=== PATIENT | female | born 2000 | race Caucasian/White ===

== ENCOUNTER 2022-02-02 13:28 | Emergency (ER) | payer BC ==
--- OUTSIDE RECORDS SUMMARY | 2022-02-02 13:40 | XMS REPORT | Continuity of Care Document ---
:2000 Author Organization Formerly [facility] t Address Critical access hospital[facility] [address] [place] [address] Care Team Providers Name Role Phone ALICE GARCIA Primary Care Physician Unavailable MAT SHAH Attending Clinician Unavailable ISRAEL BIRD Attending Clinician Unavailable VIDYA PATEL Attending Clinician Unavailable Vidya Rodriguez Attending Clinician Unknown, Attending Attending Clinician Unavailable Doctor Unassigned, [place] Attending Clinician Unavailable Judy WHAlice SANTOS Attending Clinician [phone] ALICE GARCIA Attending Clinician Unavailable Payers Payer Name Policy Type Policy Number Effective Date Expiration Date Fred de luna [facility] [id number] 2021 00:00:00 [place] [employer] [id number] 2021 00:00:00 Problems Condition Condition Condition Status Onset Resolution Last Treating Co mments Source Name Details Category Date Date Treatment Clinician Date Susceptibl Susceptibl Disease Active Overview : Univers e to e to 10-22 Formattin ity of varicella varicella 00:00: [place] (non-immun (non-immun 00 note Me dical e), e), might be Branch currently currently different from the original. Address pp Supervisio Supervisio Disease Active Overview : Univers n of n of 10-21 Formattin ity of high-risk high-risk 00:00: [place] 00 note Medi indio might be Branch different from the original. ROR requested today, see care everywher e for labs Multiparit Multiparit Disease Active U nivers y y 10-21 ity of 00:00: [place] 00 [facility] History of History of Disease Active Overview : Univers 10-21 Formattin ity of section section 00:00: g of this 00 note Medical might be Branch different from the original. x1 desires TOLAC Leakage of Leakage of Disease Active U nivers amniotic amniotic 10-21 ity of fluid fluid 00:00: [place] 00 Medical [place] Allergies, Adverse Reactions, Alerts Allergy Allergy Status Severity Reaction(s) Onset Inactive Treating Comm ents Source Name Type Date Date Clinician NO KNOWN Drug Active Univers ALLERGIE Class ity of S [facility] [place] Social History Social Habit Start Date Stop Date Quantity Comments Source ASSERTION 2020-01-31 [facility] 00:00:[address] [facility] [place] Exposure to 2021-12-12 2021-12-22 Not sure [facility] SARS-CoV-2 00:00:00 09:07:00 [facility] (event) [place] Tobacco use and 2021-12-22 2021-12-22 Smokeless tobacco Un iversity of exposure 00:00:00 00:00:00 non-user [facility] [place] Alcohol intake 2021-12-22 2021-12-22 Ex-drinker [facility] 00:00:00 00:00:00 (finding) [facility] [place] Sex Assigned At [birth year] Universit y of 00:00:00 00:00:[address] [facility] [place] [place] Smoking Status Start Date Stop Date Source Never smoked tobacco [facility] Medications Ordered Filled Start Stop Current Ordering Indication Dosage Frequency Signature Comments Components Source Medication Medication Date Date Medication? Clinician (SIG) Name Name cyclobenzap 2021-02 Yes [id number] 10mg Take 1 Univers rine 10 mg 1-01 tablet by ity of tablet 00:00: mouth at [place] 00 bedtime as Medical needed for Branch Muscle Spasms. naproxen 2021-02 Yes [id number] 500mg Take 1 U nivers 500 mg 1-01 tablet by ity of tablet 00:00: mouth [place] 00 every 8 Medical (eight) Branch hours as needed for Pain (scale 4-6). Yes Unive rs vit,indio 10-21 Vitamin ity of 74/iron/fol 18:22: [place] ic 35 Medical ( Branch VITAMIN 1+1 ORAL) proMETHazin Yes promethazi Univers e 12.5 mg 8-31 ne 12.5 mg ity of tablet 18:22: tablet 35 take 1 tab Medical PO every Branch 4-6hr prn nausea doxylamine- Yes Diclegis Un cecily pyridoxine, 8-31 10 mg-10 ity of vit B6, 18:22: mg [place] (DICLEGIS) 35 tablet,del Med ical 10-10 mg ayed Branch per tablet release Take 1 tab PO in morning, 1 tab mid-aftern oon, and 2 tabs in evenings calcium Yes Mylanta Univers carb-mag 8-31 Coat-Cool ity of hydrox-izabella 18:22: [facility] (MYLANTA 35 Medical COAT-COOL) Branch 1,200 mg-270 mg -80 mg/10 mL Susp Yes Unive rs vit,indio 8-31 Vitamin ity of 74/iron/fol 18:22: [facility] 35 Medical ( Branch VITAMIN 1+1 ORAL) proMETHazin Yes promethazi Univers e 12.5 mg 8-31 ne 12.5 mg ity of tablet 18:22: tablet 35 take 1 tab Medical PO every Branch 4-6hr prn nausea doxylamine- Yes Diclegis Un cecily pyridoxine, 8-31 10 mg-10 ity of vit B6, 18:22: mg [place] (DICLEGIS) 35 tablet,del Med ical 10-10 mg ayed Branch per tablet release Take 1 tab PO in morning, 1 tab mid-aftern oon, and 2 tabs in evenings calcium Yes Mylanta Univers carb-mag 8-31 Coat-Cool ity of hydrox-izabella 18:22: [place] (MYLANTA 35 Medical COAT-COOL) Branch 1,200 mg-270 mg -80 mg/10 mL Susp Yes Unive rs vit,indio 8-31 Vitamin ity of 74/iron/fol 13:22: [place] ic 35 Medical ( Branch VITAMIN 1+1 ORAL) proMETHazin Yes promethazi Univers e 12.5 mg 8-31 ne 12.5 mg ity of tablet 13:22: tablet [place] 35 take 1 tab Medical PO every Branch 4-6hr prn nausea doxylamine- Yes Diclegis Un cecily pyridoxine, 8-31 10 mg-10 ity of vit B6, 13:22: mg [place] (DICLEGIS) 35 tablet,del Med ical 10-10 mg ayed Branch per tablet release Take 1 tab PO in morning, 1 tab mid-aftern oon, and 2 tabs in evenings calcium Yes [facility] Univers carb-mag 8-31 Coat-Cool ity of hydrox-izabella 13:22: [facility] (MYLANTA 35 Medical COAT-COOL) Branch 1,200 mg-270 mg -80 mg/10 mL Susp Yes Unive rs vit,indio 8 Vitamin ity of 74/iron/fol 13:22: [facility] 35 Medical ( Branch VITAMIN 1+1 ORAL) proMETHazin Yes promethazi Univers e 12.5 mg 8- ne 12.5 mg ity of tablet 13:22: tablet [place] [id number] take 1 tab Medical PO every Branch 4-6hr prn nausea doxylamine- Yes Diclegis Un cecily pyridoxine, 8-31 10 mg-10 ity of vit B6, 13:22: mg [place] (DICLEGIS) 35 tablet,del Med ical 10-10 mg ayed Branch per tablet release Take 1 tab PO in morning, 1 tab mid-aftern oon, and 2 tabs in evenings calcium Yes [facility] carb-mag 8-31 Coat-Cool ity of hydrox-izabella 13:22: [facility] (MYLANTA 35 Medical COAT-COOL) Branch 1,200 mg-270 mg -80 mg/10 mL Susp Immunizations Ordered Filled Immunization Date Status Comments Sourc e Immunization Name Name TD 2020-08-12 Completed [facility] 00:00:[address] [facility] [place] TD 2020-08-12 Completed University of 00:00:[address] [facility] [place] TDAP 2020-08-12 Completed [facility] 00:00:[address] [facility] TDAP 2020-08-12 Completed [facility] 00:00:[address] [facility] [place] Vital Signs Vital Name Observation Time Observation Value Comments Source Respiratory rate 2021-12-22 14:17:00 16 /min [facility] Body height 2021-12-22 14:17:00 157.5 cm Universi ty [facility] Body weight 2021-12-22 14:17:00 51.483 kg [facility] BMI 2021-12-22 14:17:00 20.76 kg/m2 [facility] Oxygen saturation in 2021-12-22 14:17:00 98 /min [facility] Arterial blood by [facility] Pulse oximetry Branch Systolic blood 2021-12-22 14:17:00 110 mm[Hg] Univer sity of pressure [facility] [place] Diastolic blood 2021-12-22 14:17:00 70 mm[Hg] Unive rsity of [facility] Heart rate 2021-12-22 14:17:00 67 /min [facility] Body temperature 2021-12-22 14:17:00 37.06 Iva [facility] Systolic blood 2020-10-21 18:22:00 114 mm[Hg] Univer sity of [facility] Diastolic blood 2020-10-21 18:22:00 73 mm[Hg] Unive rsity of [facility] Heart rate 2020-10-21 18:22:00 56 /min [facility] Body temperature 2020-10-21 18:22:00 37.33 Iva [facility] Respiratory rate 2020-10-21 18:22:00 16 /min [facility] Body weight 2020-10-21 18:22:00 64.581 kg [facility] Procedures Procedure Date / Time Performed Performing Clinician [facility] e ASSIGNMENT OF BENEFITS 2021-12-22 14:10:54 Doctor Unassigned, No [facility] Name [facility] CBC WITH DIFF 2020-10-21 19:22:00 Alice Garcia [facility] HEPATITIS B SURFACE 2020-10-21 19:22:00 Alice [facility]2 AG-AB WITH 2020-10-21 19:22:00 Alice Garcia Univ ersity of [facility] HB ABO GROUPING 2020-10-21 19:15:00 Alice Garcia Univers ity [facility] POCT TEST 2020-10-21 18:15:00 Alice Garcia Uni versity [facility] POCT URINALYSIS W/O 2020-10-21 18:15:00 [facility] Start End Encounter Admission Attending Care Care Encounter Source Date/Time Date/Time Type Type Clinicians Facility Department ID 2022-01-04 2022-01-04 Outpatient R ALYSSA [facility] [id number] Univers 14:45:00 14:45:00 MAT jesse [facility] 2021-12-30 2021-12-30 Outpatient R MARGE [facility] [id number] Univers 15:00:00 15:00:00 ISRAEL valero [facility] 2021-12-22 2021-12-22 Outpatient Hue PATEL [facility] [id number] Univers 09:20:00 09:29:53 VIDYA valero o f [facility] [place] 2021-12-22 2021-12-22 Urgent Vidya Patel [facility] [id number] Univers 09:20:00 09:29:53 Care Unknown, Attending HEALTH [id number] ity of [place] [id number] Siddhartha as DENISA?BLEA [id number] [address] MEDICAL OFFICE BUILDING 2021-12-22 2021-12-22 Orders Doctor SANTIAGO [id number] Univers 00:00:00 00:00:00 Only Unassigned, MARICRUZ [id number] ity of [place] [facility] [id number] Siddhartha as [id number] [address] 2020-10-21 2020-10-21 [facility] [id number] Univers 13:02:53 14:21:29 Alice Beal [employer] [id number] ity of Visit [facility] [id number] Siddhartha as MATERNAL [id number] Med ical & CHILD [address] [place] [address] 2020-10-21 2020-10-21 Outpatient R JUDY, [facility] [id number] Univers 13:30:00 13:30:[address] [facility] [place] Results Test Description Test Time Test Comments Results Result Comments Source HIV 1/2 AG-AB WITH REFLEX 2020-10-22 07:26:56 Test Item Value Reference Range Interpretation Comme nts HIV Semi-quantitative (test code = Negative Negative 22617-1) NEGAR (test code = NEGAR) Non-reactive for HIV-1 antigen and HIV-1/HIV-2 antibodies. ?No laboratory evidence of HIV infection. ?Repeat in 2-4 weeks if acute HIV infection is suspected. [facility] WITH [id number] 07:26:56 Test Item Value Reference Range Interpretation Comments HIV Semi-quantitative (test code = Negative Negative 87485-3) NEG[facility] (test code = NEGAR) [facility] [id number] 07:22:26 Test Item Value Reference Range Interpretation Comments ABO & RH (test code A POSITIVE Performe d at [facility] = 20) Laboratory Serv [facility] Blood [facility]3 [facility] s [id number] Free: [phone] A No. [id number] IAT (test code = Negative Performed a t [facility] 1185) Laboratory Serv [facility] Blood [facility]3 [facility] s [id number] Free: [phone] A No. [id number] [facility] [id number] 07:22:26 Test Item Value Reference Range Interpretation Comments ABO & RH (test code = 20) A POSITIVE IAT (test code = 1185) Negative [facility] B SURFACE [id number] 06:19:30 Test Item Value Reference Range Interpretation Comments HBsAg Semi-Quantitative (test code = Negative Negative 5195-3) [facility] B SURFACE [id number] 06:19:30 Test Item Value Reference Range Interpretation Comments HBsAg Semi-Quantitative (test code = Negative Negative 5195-3) [facility] WITH [id number] 04:34:52 Test Item Value Reference Range Interpretation Comments WBC (test code = See_Comment [Automated 6690-2) message] The sy stem which generated this result transmitted reference range : 4.30 - 11.10 10*3/?L. The reference range was not used to interpret this result as normal/abnormal . RBC (test code = See_Comment [Automated 789-8) message] The sy stem which generated this result transmitted reference range : 3.93 - 5.25 10*6/?L. The reference range was not used to interpret this result as normal/abnormal . HGB (test code = 13.1 g/dL 11.6-15.0 718-7) HCT (test code = 39.5 % 35.7-45.2 4544-3) MCV (test code = 89.8 fL 80.6-95.5 787-2) MCH (test code = 29.8 pg 25.9-32.8 785-6) MCHC (test code = 33.2 g/dL 31.6-35.1 786-4) RDW-SD (test code = 43.2 fL 39.0-49.9 90120-1) RDW-CV (test code = 13.2 % 12.0-15.5 788-0) PLT (test code = See_Comment L [Automated 777-3) message] The sy stem which generated this result transmitted reference range : 166 - 358 10*3/ ?L. The reference r gopi was not used to interpret this result as normal/abnormal . MPV (test code = 13.0 fL 9.5-12.9 H 06684-6) NRBC/100 WBC (test See_Comment [Automat ed code = [id number]) message] The system which generated this result transmitted reference range : 0.0 - 10.0 /100 WBCs. The refer ence range was not u sed to interpret th is result as normal/abnormal . NRBC x10^3 (test code <0.01 See_Comment [Auto mated = [id number]) message] The s ystem which generated this result transmitted reference range : 10*3/?L. The reference range was not used to interpret this result as normal/abnormal . GRAN MAT (NEUT) % 63.9 % (test code = 770-8) IMM GRAN % (test code 0.20 % = 7765537586) LYMPH % (test code = 27.6 % 736-9) MONO % (test code = 7.2 % 5905-5) EOS % (test code = 0.7 % 713-8) BASO % (test code = 0.4 % 706-2) GRAN MAT x10^3(ANC) 5.26 10*3/uL 1.88-7.09 (test code = 3681065066) IMM GRAN x10^3 (test <0.03 0.00-0.06 code = 3085381863) LYMPH x10^3 (test code 2.27 10*3/uL 1.32-3.29 = 731-0) MONO x10^3 (test code 0.59 10*3/uL 0.33-0.92 = 742-7) EOS x10^3 (test code = 0.06 10*3/uL 0.03-0.39 711-2) BASO x10^3 (test code 0.03 10*3/uL 0.01-0.07 = 704-7) Lab Interpretation Abnormal (test code = 35538-6) [facility] WITH [id number] 04:34:52 Test Item Value Reference Range Interpretation Comments WBC (test code = See_Comment [Automated 3229-2) message] The sy stem which generated this result transmitted reference range : 4.30 - 11.10 10*3/?L. The reference range was not used to interpret this result as normal/abnormal . RBC (test code = See_Comment [Automated 741-8) message] The sy stem which generated this result transmitted reference range : 3.93 - 5.25 10*6/?L. The reference range was not used to interpret this result as normal/abnormal . HGB (test code = 13.1 g/dL 11.6-15.0 718-7) HCT (test code = 39.5 % 35.7-45.2 4544-3) MCV (test code = 89.8 fL 80.6-95.5 787-2) MCH (test code = 29.8 pg 25.9-32.8 785-6) MCHC (test code = 33.2 g/dL 31.6-35.1 786-4) RDW-SD (test code = 43.2 fL 39.0-49.9 53093-4) RDW-CV (test code = 13.2 % 12.0-15.5 788-0) PLT (test code = See_Comment L [Automated 777-3) message] The sy stem which generated this result transmitted reference range : 166 - 358 10*3/ ?L. The reference r gopi was not used to interpret this result as normal/abnormal . MPV (test code = 13.0 fL 9.5-12.9 H 30160-5) NRBC/100 WBC (test See_Comment [Automat ed code = 5424660622) message] The system which generated this result transmitted reference range : 0.0 - 10.0 /100 WBCs. The refer ence range was not u sed to interpret th is result as normal/abnormal . NRBC x10^3 (test code <0.01 See_Comment [Auto mated = 2543036714) message] The s ystem which generated this result transmitted reference range : 10*3/?L. The reference range was not used to interpret this result as normal/abnormal . GRAN MAT (NEUT) % 63.9 % (test code = 770-8) IMM GRAN % (test code 0.20 % = 9798049866) LYMPH % (test code = 27.6 % 736-9) MONO % (test code = 7.2 % 5905-5) EOS % (test code = 0.7 % 713-8) BASO % (test code = 0.4 % 706-2) GRAN MAT x10^3(ANC) 5.26 10*3/uL 1.88-7.09 (test code = 3236124042) IMM GRAN x10^3 (test <0.03 0.00-0.06 code = 1908707094) LYMPH x10^3 (test code 2.27 10*3/uL 1.32-3.29 = 731-0) MONO x10^3 (test code 0.59 10*3/uL 0.33-0.92 = 742-7) EOS x10^3 (test code = 0.06 10*3/uL 0.03-0.39 711-2) BASO x10^3 (test code 0.03 10*3/uL 0.01-0.07 = 704-7) Lab Interpretation Abnormal (test code = 11212-5) [facility] [id number] 18:15:00 Test Item Value Reference Range Interpretation Comments POCT PREG (test code = 1605) Positive On board controls acceptable with C Yes Line (test code = 3574) POCT PREG LOT # (test code = 3575) POCT PREG TEST DATE (test code = 357) [facility] URINALYSIS W/O SPECIFIC [id number] 18:15:00 Test Item Value Reference Range Interpretation Comments POCT PH U (test code = 3254) 7 mg/dl 5-8 POCT U LEUK EST (test code = 2+ Negative - Negative 3263) POCT U NIT (test code = 3262) Neg Negative - Negative POCT U PROT (test code = 3259) Trace Negative - Negative POCT U GLU (test code = 3256) Neg Negative - Negative POCT U KETONE (test code = 3258) NOne Negative - Negative POCT U BLD (test code = 3257) Trace Negative - Negative [facility] [id number] 18:15:00 Test Item Value Reference Range Interpretation Comments POCT PREG (test code = 1605) Positive On board controls acceptable with C Yes Line (test code = 3574) POCT PREG LOT # (test code = 3575) POCT PREG TEST DATE (test code = 357) [facility] URINALYSIS W/O SPECIFIC [id number] 18:15:00 Test Item Value Reference Range Interpretation Comments POCT PH U (test code = 3254) 7 mg/dl 5-8 POCT U LEUK EST (test code = 2+ Negative - Negative 3263) POCT U NIT (test code = 3262) Neg Negative - Negative POCT U PROT (test code = 3259) Trace Negative - Negative POCT U GLU (test code = 3256) Neg Negative - Negative POCT U KETONE (test code = 3258) NOne Negative - Negative POCT U BLD (test code = 3257) Trace Negative - Negative [facility]
--- NOTE | 2022-02-02 14:03 | ER ---
Nurse's Notes [facility] Name: Anna Marie Lopez Age: 21 yrs Sex: Female : 2000 Arrival Date: 02/02/2022 Time: 13:33 Bed 15 Private MD: Diagnosis: Suicidal ideations Presentation: 02/02 13:45 Chief complaint: EMS states: Neighbor called 911 because patient was found in his ss vehicle naked. Possible ingestion of cyclobenzaprine as a bottle of her husbands prescription was found, prescribed this month, 90 day supply and half of the bottle missing. Mother states that patient was distraught this morning, stating that she was "over it." reports that he last saw the patient normal at 0930 this morning. Pt is confused, oriented to person only. Coronavirus screen: Client denies travel out of the [place] in the last 14 days. Ebola Screen: Patient denies exposure to infectious person. Patient denies travel to an Ebola-affected area in the 21 days before illness onset. Initial Sepsis Screen: Does the patient meet any 2 criteria? No. Patient's initial sepsis screen is negative. Does the patient have a suspected source of infection? No. Patient's initial sepsis screen is negative. Risk Assessment: Do you want to hurt yourself or someone else? Patient reports desire/thoughts of hurting themselves or someone else. Provider notified. Onset of symptoms was February 02, 2022. 13:45 Method Of Arrival: EMS: [facility] 13:45 Acuity: FREDA 2 ss BIT SHAVER: 02/03 08:57 LMP N/A - Irregular menses ap3 Historical: - Allergies: 02/02 13:57 No Known Allergies; ss - Home Meds: 13:57 None [Active]; ss - PMHx: 13:57 Depressive disorder; ss - PSHx: 13:57 None; ss - Immunization history:: Adult Immunizations unknown. - Social history:: Smoking status: Patient denies any tobacco usage or history of. Screenin:00 [facility] ED Fall Risk Assessment (Adult) History of falling in the last 3 months, eh3 including since admission No falls in past 3 months (0 pts) Confusion or Disorientation Yes (5 pts) Intoxicated or Sedated Yes (3 pts) Impaired Gait Yes (1 pt) Mobility Assist Device Used No (0 pt) Altered Elimination No (0 pt) Score/Fall Risk Level 3 or more points = High Risk Oriented to surroundings, Maintained a safe environment, Educated pt \\T\\ family on fall prevention, incl call for assistance when getting out of bed, Assessed \\T\\ reinforced patient's understanding of fall precautions, Provided non-skid footwear, Hourly rounding (assess needs \\T\\ fall precautionary measures) done, Used ambulatory aids as needed (educated on \\T\\ assisted with), Used gait belt as appropriate Implemented a Fall Risk Plan of Care, Apply high fall risk patient identification: yellow non skid footwear/ fall signage, Offered frequent toileting (1:1 observation), Remained with patient while ambulating, Utilized family, sitter, or virtual flat polisher as indicated. Humpty Dumpty Scale Fall Assessment Tool (age< 18yrs) Age 13 years and above (1 pt) Gender Female (1 pt) Diagnosis Psych/ behavioral disorders ( 2 pts) Cognitive Impairments Not aware of limitations (3 pts) Environmental Factors Patient placed in bed (2 pts) Response to Surgery/Sedation/Anesthesia More than 48 hours/ None (1 pt) Medication Usage One of the meds listed above (2 pts) Fall Risk Score/ Level High Fall Risk: >/= 12 points Oriented to surroundings, Maintained a safe environment: age specific bed with railing, Bed in low position \\T\\ wheels locked, Assessed need for side rail use, Locks on all chairs, commodes, stretchers \\T\\ wheelchairs, Rm and paths clutter \\T\\ obstacle free, Proper lighting, Educated pt \\T\\ family on fall prevention, incl. call for assistance when getting out of bed, Assesseed \\T\\ reinforced patient's understanding of fall precautions, Provided non -skid footwear, Hourly rounding (assess needs \\T\\ fall precautionary measures) done, Use of ambulatory aids as needed (educated on \\T\\ assisted with), Used gait belt as appropriate, Implemented a fall risk plan of care, Applied high fall risk patient identification: yellow non-skid footwear/ fall signage, Remained with the patient when ambulating, Used family, sitter or virtual flat polisher as indicated, Patient moved closer to Nurse's station. Abuse screen: Denies threats or abuse. Denies injuries from another. Nutritional screening: No deficits noted. Tuberculosis screening: No symptoms or risk factors identified. Fall Risk IV access (20 points). Ambulatory Aid- None/Bed Rest/Nurse Assist (0 pts). Gait- Impaired (20 pts.). Mental Status- Overestimates/Forgets Limitations (15 pts.). Total Prince Fall Scale indicates High Risk Score (45 or more points). Fall prevention measures have been instituted. Side Rails Up X 2 Placed Close to Nursing Station 1:1 Attendant Assigned Frequent Obs/Assessments Occuring Family Present and informed to notify staff if the need to leave the bedside As available patient and family educated on Fall Prevention Program and Strategies. Assessment: 14:00 General: Appears in no apparent distress. comfortable, Behavior is cooperative, eh3 anxious, drowsy. Pain: Denies pain. Neuro: Level of Consciousness is awake, obeys commands, confused, Oriented to person, place. Cardiovascular: Capillary refill < 3 seconds Patient's skin is warm and dry. Respiratory: Airway is patent Respiratory effort is even, unlabored, Respiratory pattern is regular, symmetrical. GI: No signs and/or symptoms were reported involving the gastrointestinal system. Abdomen is flat, non-distended. : No signs and/or symptoms were reported regarding the genitourinary system. EENT: No signs and/or symptoms were reported regarding the EENT system. Derm: No signs and/or symptoms reported regarding the dermatologic system. Musculoskeletal: No signs and/or symptoms reported regarding the musculoskeletal system. Circulation, motion, and sensation intact. Range of motion:. 14:06 Reassessment: Poison control contacted: CASE #[id number]. Recommendation is to keep ss patient until back at baseline and/or minimum of 8 hour observation. Anticipate anticholinergic effects, dry mouth, tachycardiac, hypo or hypertension, delirium, hallucinations and/or seizure. Obtain tox labs, EKG, Mg and give IV fluids. MITA Cormier notified of recommendations. 15:00 Reassessment: Patient and/or family updated on plan of care and expected duration. Pain eh3 level reassessed. Patient is alert, oriented x 3, equal unlabored respirations, skin warm/dry/pink. 16:00 Reassessment: Patient and/or family updated on plan of care and expected duration. Pain eh3 level reassessed. Patient is alert, oriented x 3, equal unlabored respirations, skin warm/dry/pink. 17:00 Reassessment: Patient and/or family updated on plan of care and expected duration. Pain eh3 level reassessed. Patient is alert, oriented x 3, equal unlabored respirations, skin warm/dry/pink. 18:00 Reassessment: Patient and/or family updated on plan of care and expected duration. Pain eh3 level reassessed. Patient is alert, oriented x 3, equal unlabored respirations, skin warm/dry/pink. 19:00 Reassessment: Patient and/or family updated on plan of care and expected duration. Pain eh3 level reassessed. Patient is alert, oriented x 3, equal unlabored respirations, skin warm/dry/pink. 20:45 General: Appears in no apparent distress. comfortable, well groomed, well developed, pf1 Behavior is calm, cooperative, appropriate for age, quiet. 20:45 Pain: Denies pain. Neuro: No deficits noted. Level of Consciousness is awake, alert, pf1 obeys commands, Oriented to person, place, time, situation. Cardiovascular: No deficits noted. Capillary refill < 3 seconds Patient's skin is warm and dry. Respiratory: No deficits noted. Airway is patent Respiratory effort is even, unlabored, Respiratory pattern is regular, symmetrical, Breath sounds are clear bilaterally. GI: No deficits noted. No signs and/or symptoms were reported involving the gastrointestinal system. Abdomen is flat, non-distended, Bowel sounds present X 4 quads. : No deficits noted. No signs and/or symptoms were reported regarding the genitourinary system. EENT: No deficits noted. No signs and/or symptoms were reported regarding the EENT system. Derm: No deficits noted. No signs and/or symptoms reported regarding the dermatologic system. 22:00 Reassessment: Patient and/or family updated on plan of care and expected duration. Pain pf1 level reassessed. Patient is alert, oriented x 3, equal unlabored respirations, skin warm/dry/pink. 23:00 Reassessment: Patient appears in no apparent distress at this time. Patient and/or pf1 family updated on plan of care and expected duration. Pain level reassessed. Patient is alert, oriented x 3, equal unlabored respirations, skin warm/dry/pink. Patient sleeping at this time. Mother in room with patient. 02/03 00:00 Reassessment: Patient appears in no apparent distress at this time. No changes from pf1 previously documented assessment. 01:00 Reassessment: Patient appears in no apparent distress at this time. No changes from pf1 previously documented assessment. Patient and/or family updated on plan of care and expected duration. Pain level reassessed. 02:00 Reassessment: Patient appears in no apparent distress at this time. No changes from pf1 previously documented assessment. Patient and/or family updated on plan of care and expected duration. Pain level reassessed. 03:00 Reassessment: Patient appears in no apparent distress at this time. No changes from pf1 previously documented assessment. Patient and/or family updated on plan of care and expected duration. Pain level reassessed. Patient sleeping at this time.. 04:00 Reassessment: Patient appears in no apparent distress at this time. No changes from pf1 previously documented assessment. Patient and/or family updated on plan of care and expected duration. Pain level reassessed. Patient sleeping at this time. 05:00 Reassessment: Patient appears in no apparent distress at this time. No changes from pf1 previously documented assessment. Patient and/or family updated on plan of care and expected duration. Pain level reassessed. Patient sleeping at this time. 06:00 Reassessment: Patient appears in no apparent distress at this time. No changes from pf1 previously documented assessment. Patient and/or family updated on plan of care and expected duration. Pain level reassessed. Patient sleeping at this time. Mother in room with patient. 07:15 Reassessment: Patient and/or family updated on plan of care and expected duration. Pain ap3 level reassessed. Patient is alert, oriented x 3, equal unlabored respirations, skin warm/dry/pink. patient denies that she overdosed. patient states she took "one Flexeril". patient is not cooperative for [place] scale reassessment at this time. 08:30 Reassessment: Patient and/or family updated on plan of care and expected duration. Pain ap3 level reassessed. Patient is alert, oriented x 3, equal unlabored respirations, skin warm/dry/pink. 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 report given to transport crew. ap3 Psych: 02/02 20:45 [place] Suicide Severity Screening: Patient denies any suicidal ideations or attempt. pf1 20:45 Subjective: Delusions are denied, Hallucinations are denied. Objective: Patient is pf1 cooperative, using poor eye contact, Speech is normal, Affect is flat. Interventions: Removed personal items and placed in bag. Patient placed in hospital gown. Searched person for dangerous items. Urine collected and sent for urine drug test. Belonging list filled out. Safety Checks: Personal items have been removed. Door is open. Visitors are present. 02/03 08:57 Commitment: Patient will be an involuntary commitment. ap3 08:57 unknown. patient currently denies. ap3 Overdose: 02/02 20:45 [place] Suicide Severity Screening: Patient denies any suicidal attempt or ideations pf1 at this time. Patient stated she took Flexeril x 1 tablet this morning for her headache. 20:45 Patient took Patient stated took Flexeril x 1 tablet this AM. pf1 02/03 08:55 [place] Suicide Severity Screening: "In the past month, have you wished you were ap3 or wished you could go to sleep and not wake up?" Patient responds "yes." Based off client's responses, additional C-SSRS screening questions required. "In the past month, have you actually had any thoughts of killing yourself?" Patient responds "no." patient denies she attempted suicide. patient states that she only took "one Flexeril" "In your lifetime, have you ever done anything, started to do anything, or prepared to do anything to end your life?". 08:56 [place] Suicide Severity Screening: "In the past month, have you actually had any ap3 thoughts of killing yourself?" Patient responds "yes." Based off client's responses, additional C-SSRS screening questions required. Vital Signs: 02/02 13:45 BP 119 / 81; Pulse 98; Resp 15; Temp 98.0(TE); Pulse Ox 100% on R/A; Pain 0/10; ss 14:00 BP 121 / 77; Pulse 99; Resp 16; Pulse Ox 100% on R/A; eh3 15:00 BP 142 / 91; Pulse 113; Resp 18; Pulse Ox 99% on R/A; eh3 16:00 BP 123 / 104; Pulse 93; Resp 18; Pulse Ox 100% on R/A; eh3 17:00 BP 114 / 91; Pulse 86; Resp 18; Pulse Ox 100% on R/A; eh3 18:00 BP 128 / 70; Pulse 79; Resp 18; Pulse Ox 99% on R/A; eh3 20:45 BP 110 / 74; Pulse 95; Resp 18; Temp 97.8; Pulse Ox 100% ; Pain 0/10; pf1 02/03 00:00 BP 112 / 68; Pulse 90; Resp 16; Pulse Ox 98% ; Pain 0/10; pf1 03:00 BP 106 / 74; Pulse 89; Resp 18; Temp 97.9; Pulse Ox 100% ; Pain 0/10; pf1 06:52 BP 99 / 61; Pulse 83; Resp 18; Temp 97.9(TE); Pulse Ox 100% on R/A; pf1 ED Course: 02/02 13:33 Patient arrived in ED. ss 13:36 Genia Santo FNP-C is PHCP. kb 13:36 David Maradiaga DO is Attending Physician. kb 13:40 Ariana Hilario RN is Primary Nurse. eh3 13:57 Triage completed. ss 13:57 Arm band placed on right wrist. ss 14:00 Patient has correct armband on for positive identification. Bed in low position. Call eh3 light in reach. Side rails up X2. Adult w/ patient. Valuables inventory done. Seizure precautions initiated. Pulse ox on. NIBP on. Sitter at bedside. Door closed. Noise minimized. Warm blanket given. Patient is placed in psych hold. 14:00 Inserted saline lock: 20 gauge in right antecubital area, using aseptic technique. eh3 Blood collected. 14:03 CT Head Brain wo Cont In Process Unspecified. EDMS 18:28 Urine collected: clean catch specimen, clear. tm3 20:45 Safety Checks: Personal items have been removed. The door is open or patient has been pf1 placed in a hallway bed/chair. A family member and/or friend is present and encouraged to stay. at Sitter present at this time. 02/03 07:14 Attending Physician role handed off by David Maradiaga DO madina 07:14 Morris Lopez MD is Attending Physician. madina 08:35 Primary Nurse role handed off by Ariana Hilario RN bd 08:54 Patient transferred, IV remains in place. Pressure dressing applied. rs5 08:56 No provider procedures requiring assistance completed. ap3 Administered Medications: 02/02 14:25 Drug: NS 0.9% 1000 ml Route: IV; Rate: 1000 ml; Site: right antecubital; eh3 15:36 Follow up: IV Status: Completed infusion; IV Intake: 1000ml eh3 15:35 Drug: Potassium Chloride 40 mEq Route: PO; eh3 18:16 Follow up: Response: No adverse reaction eh3 Medication: 14:06 VIS not applicable for this client. ss Intake: 15:36 IV: 1000ml; Total: 1000ml. eh3 Outcome: 14:02 ER care complete, transfer ordered by . ms3 02/03 08:57 Transferred by ground EMS Note: [facility] ap3 Condition: good Instructed on the need for transfer. 08:59 Patient left the ED. ap3 Signatures: Dispatcher [employer] EDMS Genia Santo, TRUSS BUILDER-C TRUSS BUILDER-Ckb Awa Mcclure bd Elle, Dangelo tm3 Morris Lopez MD MD cha Smirch, Shelby, RN RN Brook Curiel RN RN ap3 Dvaid Maradiaga, DO ms3 Ariana Hilario RN RN eh3 Rosy christopher RN RN pf1 Marquis Hernández rs5 Corrections: (The following items were deleted from the chart) 02/02 15:17 13:45 Risk Assessment: Do you want to hurt yourself or someone else? Patient reports no ss desire to harm self or others. ss 02/03 08:55 08:52 Reassessment: Patient and/or family updated on plan of care and expected ap3 duration. Pain level reassessed. Patient is alert, oriented x 3, equal unlabored respirations, skin warm/dry/pink. ap3
[2022-02-02 14:06] LABS: Absolute Lymphocytes (CBC) 0.9 K/uL (0.7-4.9); Hematocrit 43.8 % (36.0-45.0); Lymphocytes % 35.2 % (15.3-44.8); MCV 90.1 fL (80-100); RBC Red Blood Cell Count 4.87 M/uL (3.86-4.86)
[2022-02-02 14:10] LABS: Protime INR 1.16
--- NOTE | 2022-02-02 14:10 | RAD REPORT ---
EXAM DESCRIPTION: CT - Head Brain Wo Cont - 02/02/2022 2:02 pm CLINICAL HISTORY: ams Headache, drowsiness COMPARISON: No comparisons TECHNIQUE: All CT scans are performed using dose optimization technique as appropriate and may inclu de automated exposure control or mA/KV adjustment according to patient size. FINDINGS: No intracranial hemorrhage, hydrocephalus or extra-axial fluid collection.No areas of brai n edema or evidence of midline shift. The paranasal sinuses and mastoids are clear. The calvarium is intact. IMPRESSION: No acute intracranial abnormality.
[2022-02-02 14:14] LABS: SARS-CoV-2 Antigen Rapid Res Negative (Negative)
[2022-02-02] MEDS ORDERED: NA CHLORIDE 0.9% 1,000 ML ONE (14:23)
[2022-02-02 14:29] LABS: ALT/SGPT 22 U/L (13-56); AST/SGOT 20 U/L (15-37); Albumin 4.3 g/dL (3.4-5.0); Alkaline Phosphatase 83 U/L (45-117); BUN Blood Urea Nitrogen 6 mg/dL (7-18); Bicarbonate 28 mmol/L (21-32); Bilirubin Total 0.4 mg/dL (0.2-1.0); Glomerular Filtration Rate 128 ml/min (=/>90); Glucose Level 106 mg/dL (74-106); Magnesium 2.3 mg/dL (1.6-2.4); Potassium 3.1 mmol/L (3.5-5.1); Protein, Total 8.1 g/dL (6.4-8.2); Sodium Level 141 mmol/L (136-145)
[2022-02-02 14:30] LABS: Bilirubin Direct < 0.1 mg/dL (0-0.2)
--- NOTE | 2022-02-02 14:33 | EKG ---
Test Date: 2022-02-02 Test Time: 14:04:24 Circuit Recorder: DAVI MEASUREMENT RESULTS: Intervals: Rate: 97 W[place]: 164 QRSD: 76 QT: 338 QTc: 429 [place]: P: 57 WY: 164 QRS: 78 T: 64 INTERPRETIVE STATEMENTS: Normal sinus rhythm Normal ECG No previous ECG available for comparison Electronically Signed On 02-02-22 14:32:45 NEW CAR MAKE READY WORKER by Hima Andrea
[2022-02-02] MEDS ORDERED: POTASSIUM CL SA 10 MEQ TAB PO ONE (15:39)
[2022-02-02 18:28] LABS: Urine Blood Negative (Negative); Urine Glucose Negative (Negative); Urine Protein Negative (Negative)
[2022-02-02 18:54] LABS: Barbiturates NEGATIVE (NEGATIVE); Benzodiazepines NEGATIVE (NEGATIVE); Cocaine NEGATIVE (NEGATIVE); METHAMPHETAM NEGATIVE (NEGATIVE); Methadone NEGATIVE (NEGATIVE); Opiates NEGATIVE (NEGATIVE); Phencyclidine NEGATIVE (NEGATIVE); THC Cannibis POSITIVE (NEGATIVE)
--- NOTE | 2022-02-03 09:00 | EDPHYS ---
Physician Documentation [facility] Name: Anna Marie Lopez Age: 21 yrs Sex: Female : 2000 Arrival Date: 02/02/2022 Time: 13:33 Bed 15 Private MD: ED Physician Morris Lopez HPI: 02/02 20:30 This 21 yrs old Female presents to ER via EMS with complaints of Possible Overdose. kb 20:30 The patient presents to the emergency department with a possible overdose, was found kb with a bottle. Context: Method: the patient has a confirmed or suspected ingestion, Time: the patient's OD/poisoning occurred at an unknown time, Extent: the OD/poisoning occurred at at home, and was witnessed no one, Psychiatric history: none, Previous OD/poisoning history: none. Associated signs and symptoms: The patient has no apparent associated signs or symptoms. Severity of symptoms: At their worst the symptoms were moderate in the emergency department the symptoms are unchanged. The patient has not experienced similar symptoms in the past. The patient has not recently seen a physician. states he last saw pt at 0940 and she was acting normally. Mother states pt has brought up suicide a few times in the past few weeks and again yesterday due to marital issues and general life stress. Neighbors called because pt was outside, not acting normally. EMS found open bottle of flexeril with half of the contents gone and some pills in the sink. Unknown of how many pt ingested. Pt reports she didn't count the pills when she took them. Pt is oriented to self, able to recall events up to dropping children off at school but doesn't remember what time she took the pills. . HAND SURGEON: 02/03 08:57 LMP N/A - Irregular menses ap3 Historical: - Allergies: 02/02 13:57 No Known Allergies; ss - Home Meds: 13:57 None [Active]; ss - PMHx: 13:57 Depressive disorder; ss - PSHx: 13:57 None; ss - Immunization history:: Adult Immunizations unknown. - Social history:: Smoking status: Patient denies any tobacco usage or history of. ROS: 20:29 Constitutional: Negative for fever, chills, and weight loss. kb 20:29 Neuro: Positive for altered mental status. 20:29 Psych: Positive for suicide gesture, suicidal ideation. 20:29 All other systems are negative. Exam: 14:42 Constitutional: This is a well developed, well nourished patient who is awake, alert, kb and in no acute distress. Head/Face: Normocephalic, atraumatic. ENT: Moist Mucous membranes Cardiovascular: Regular rate and rhythm with a normal S1 and S2. No gallops, murmurs, or rubs. No pulse deficits. Respiratory: Respirations even and unlabored. No increased work of breathing. Talking in full sentences Abdomen/GI: Soft, non-tender. No distention Skin: Warm, dry with normal turgor. Normal color. MS/ Extremity: Pulses equal, no cyanosis. Neurovascular intact. Full, normal range of motion. 14:42 ECG was reviewed by the Attending Physician. 14:42 Neuro: Orientation: to person. Vital Signs: 13:45 BP 119 / 81; Pulse 98; Resp 15; Temp 98.0(TE); Pulse Ox 100% on R/A; Pain 0/10; ss 14:00 BP 121 / 77; Pulse 99; Resp 16; Pulse Ox 100% on R/A; eh3 15:00 BP 142 / 91; Pulse 113; Resp 18; Pulse Ox 99% on R/A; eh3 16:00 BP 123 / 104; Pulse 93; Resp 18; Pulse Ox 100% on R/A; eh3 17:00 BP 114 / 91; Pulse 86; Resp 18; Pulse Ox 100% on R/A; eh3 18:00 BP 128 / 70; Pulse 79; Resp 18; Pulse Ox 99% on R/A; eh3 20:45 BP 110 / 74; Pulse 95; Resp 18; Temp 97.8; Pulse Ox 100% ; Pain 0/10; pf1 1214 00:00 BP 112 / 68; Pulse 90; Resp 16; Pulse Ox 98% ; Pain 0/10; pf1 03:00 BP 106 / 74; Pulse 89; Resp 18; Temp 97.9; Pulse Ox 100% ; Pain 0/10; pf1 06:52 BP 99 / 61; Pulse 83; Resp 18; Temp 97.9(TE); Pulse Ox 100% on R/A; pf1 MDM: 02/02 13:36 Patient medically screened. kb 20:29 Data reviewed: vital signs, nurses notes. Data interpreted: Pulse oximetry: on room air kb is 99 %. Interpretation: normal. 20:42 Transition of care: After a detail discussion of the patient's case, care is kb transferred to Van Patterson MD. ED course: Pt easily awakened by voice. Pt oriented x4 once awake, states she is just very tired. . 02/02 13:46 Order name: Acetaminophen; Complete Time: 14:35 kb 02/02 13:46 Order name: Basic Metabolic Panel; Complete Time: 14:35 kb 02/02 13:46 Order name: CBC with Diff; Complete Time: 14:11 kb 02/02 13:46 Order name: ETOH Level; Complete Time: 14:24 kb 02/02 13:46 Order name: Hepatic Function; Complete Time: 14:35 kb 02/02 13:46 Order name: PT-INR; Complete Time: 14:11 kb 02/02 13:46 Order name: Ptt, Activated; Complete Time: 14:11 kb 02/02 13:46 Order name: Salicylate; Complete Time: 14:43 kb 02/02 13:46 Order name: Urine Drug Screen; Complete Time: 19:08 kb 02/02 13:46 Order name: SARS RAPID; Complete Time: 14:24 kb 02/02 14:17 Order name: Magnesium; Complete Time: 14:35 EDMS 02/02 18:28 Order name: Urine Dipstick-Ancillary; Complete Time: 18:48 EDMS 02/02 18:29 Order name: Urine --Ancillary (enter results); Complete Time: 19:08 bd 02/02 13:46 Order name: EKG; Complete Time: 13:47 kb 02/02 13:46 Order name: EKG - Nurse/Tech; Complete Time: 14:12 kb 02/02 13:46 Order name: IV Saline Lock; Complete Time: 14:12 kb 02/02 13:46 Order name: Labs collected and sent; Complete Time: 14:12 kb 02/02 13:46 Order name: Suicide Precautions; Complete Time: 14:12 kb 02/02 13:46 Order name: Suicide Screening ([place]); Complete Time: 14:12 kb 02/02 13:46 Order name: Urine Dipstick-Ancillary (obtain specimen); Complete Time: 18:27 kb 02/02 13:46 Order name: Urine Test (obtain specimen); Complete Time: 18:27 kb 02/02 13:46 Order name: CT Head Brain wo Cont; Complete Time: 14:11 kb 02/02 14:16 Order name: Diet Finger Food; Complete Time: 14:17 eh3 02/03 07:08 Order name: Diet Finger Food; Complete Time: 07:09 bd EC:42 Rate is 97 beats/min. Rhythm is regular. QRS Clarence is Normal. OK interval is normal at kb 164 msec. QRS interval is normal at 76 msec. QT interval is normal at 429 msec. Administered Medications: 14:25 Drug: NS 0.9% 1000 ml Route: IV; Rate: 1000 ml; Site: right antecubital; 3 15:36 Follow up: IV Status: Completed infusion; IV Intake: 1000ml [facility] 15:35 Drug: Potassium Chloride 40 mEq Route: PO; 3 18:16 Follow up: Response: No adverse reaction 3 Disposition: 15:51 Co-signature as Attending Physician, David Maradiaga DO I was immediately available onsite ms3 in the emergency department for consultation in the care of the patient. Disposition Summary: 02/02/22 14:02 Transfer Ordered Transfer Location: [facility] ms3 Reason: Higher level of care ms3 Condition: Stable ms3 Problem: new ms3 Symptoms: are unchanged ms3 Accepting Physician: (02/03/22 08:59) ap3 Diagnosis - Suicidal ideations ms3 Forms: - Medication Reconciliation Form ms3 - SBAR form ms3 Signatures: Dispatcher [employer] EDGenia Shook, BU[employer] WIRE INSERTER-C [employer] WIRE INSERTER-Tatiana Dudley RN RN ss Prokisch, Amanda, RN RN ap3 Sims, Marcus, DO DO ms3 Ariana Hilario RN RN 3 Corrections: (The following items were deleted from the chart) 14:17 14:04 MAGNESIUM+C.LAB.BRZ ordered. EDMS EDMS 19:18 17:40 Straight Cath ordered. kb eh3 02/03 08:59 02/02 14:02 Dr pittman ap3
[2022-02-03 09:13] VITALS: TEMP 97.9; O2SAT 100
[2022-02-03 09:15] VITALS: BP 99/61
== END 2022-02-03 08:59 ==
LOC: ER 13:28
DX: R45.851 Suicidal ideations (principal); F32.A Depression, unspecified; Z20.822 Contact with and (suspected) exposure to COVID-19
CPT/HCPCS: 93005; 85025; 80048; 36415; 80320; 83735; 80329 ×2; 81025; 85610; 80076; 85730; 81003; 80307; 70450; 87811; J7030